=== PATIENT | male | born 1960 | race Two or more races ===

== ENCOUNTER 2020-01-29 18:47 | Emergency (ER) | payer OTHER ==
[~2020-01-29] VITALS: Ht 185.4 cm; Wt 86.4 kg
[2020-01-29 18:51] VITALS: BP 138/99
== END 2020-01-29 20:46 | disposition home or self-care (01) ==
LOC: EMS 18:47
DX: Z03.818 Encounter for observation for suspected exposure to other biological agents ruled out (principal); I10 Essential (primary) hypertension; F17.210 Nicotine dependence, cigarettes, uncomplicated
CPT/HCPCS: 99283; U0003